=== PATIENT | female | born 2000 | race Caucasian/White ===

== ENCOUNTER 2024-12-23 08:21 | Emergency (ER) | payer OTHER ==
[2024-12-23 08:39] VITALS: BP 129/69; PULSE 86; TEMP 98.9
[2024-12-23 08:55] VITALS: O2SAT 97
--- NOTE | 2024-12-23 08:55 | ERPHSYRPT ---
- History of Present Illness Time Seen by Provider: 12/23/24 08:35 Source: patient Exam Limitations: no limitations Patient Subjective Stated Complaint: pt doesn't feel like she has felt the baby move much yesterday or today Triage Nursing Assessment: Pt brought to the ER by her boyfriend, harry wnl, denies any pain, pulses normal, FH tones 148, reports gender of baby as a boy, 2nd , doesn't appear to be in any distress Physician History: This is a 24-year-old white female patient who is 17 weeks and concerned that she did not feel the fetus moving. The patient has absolutely no other complaints other than decreased movement. She denies chest pain. She denies abdominal pain. She denies vaginal bleeding/discharge she has no cough. She has no nausea vomiting or diarrhea symptoms. Timing/Duration: today Activites at Onset: none Onset Location: other (No abdominal pain) Severity of Pain-Max: none Severity of Pain-Current: none Prior abdominal problems: none Sexual intercourse history: non-contributory Modifying Factors: Improves With: nothing Associated Symptoms: denies symptoms Allergies/Adverse Reactions: latex Allergy (Verified 12/23/24 08:39) Home Medications: Pnv No.95/Ferrous Fum/Folic AC [ Caplet] 1 each PO DAILY 12/23/24 [History] Hx Influenza Vaccination/Date Given: No Hx Pneumococcal Vaccination/Date Given: No Travel Risk - International Travel Have you traveled outside of the country in past 3 weeks: No - Emerging Infectious Disease Are you exhibiting symptoms associated with any current EIDs: No - Review of Systems Constitutional: No Symptoms Eyes: No Symptoms Ears, Nose, & Throat: No Symptoms Respiratory: No Symptoms Cardiac: No Symptoms Abdominal/Gastrointestinal: No Symptoms Genitourinary Symptoms: No Symptoms Musculoskeletal: No Symptoms Skin: No Symptoms Neurological: No Symptoms Psychological: No Symptoms Endocrine: No Symptoms Hematologic/Lymphatic: No Symptoms Immunological/Allergic: No Symptoms All Other Systems: Reviewed and Negative - Past Medical History Pertinent Past Medical History: Yes Psycho-Social History: Bipolar - Past Surgical History Past Surgical History: Yes Other Surgical History: wisdom teeth removal - Female History Hx Now: Yes Gestational Age: 17 weeks - Social History Smoking Status: Never smoker Exposure to second hand smoke: Yes Drug Use: none - Social Determinants of Health Will the patient participate in the screening: Yes Do you worry about a steady place to live?: No Do you have any problems with any of the following?: No known problems In the past 12 months,have you had to go without utilities?: No Transportation Issues: No Has anyone in your support network made you feel unsafe?: No Have you or anyone in your house had to go without enough: No - Nursing Vital Signs Nursing Vital Signs: Initial Vital Signs Temperature 98.9 F 12/23/24 08:27 Pulse Rate 86 12/23/24 08:27 Blood Pressure 129/69 12/23/24 08:27 O2 Sat by Pulse Oximetry 97 12/23/24 08:27 Pain Scale Pain Intensity 0 - Physical Exam General Appearance: no apparent distress, alert, anxiety Eye Exam: PERRL/EOMI, eyes nml inspection Ears, Nose, Throat Exam: normal ENT inspection, moist mucous membranes Neck Exam: normal inspection, non-tender, supple, full range of motion Respiratory Exam: normal breath sounds, lungs clear, airway intact, No chest tenderness, No respiratory distress Cardiovascular Exam: regular rate/rhythm, normal heart sounds, normal peripheral pulses Gastrointestinal/Abdomen Exam: soft, normal bowel sounds, No tenderness Pelvic Exam: not done Rectal Exam: not done Back Exam: normal inspection, normal range of motion, No CVA tenderness, No vertebral tenderness Extremity Exam: normal inspection, normal range of motion, pelvis stable Neurologic Exam: alert, oriented x 3, cooperative, web operations lead II-XII nml as tested, normal mood/affect, nml cerebellar function, nml station & gait, sensation nml Skin Exam: normal color, warm, dry Lymphatic Exam: No adenopathy SpO2 Interpretation: normal SpO2: 97 O2 Delivery: Room Air - Course Nursing assessment & vital signs reviewed: Yes - Progress Progress: unchanged Air Movement: good Progress Note: 12/23/24 08:52 Medical decision making and the assignment of low complexity to this patient's medical issue today is based on review of the patient's past medical history, review the patient's medication list, review the patient drug allergy list, hist ory present illness and physical findings on examination. No radiographic or laboratory studies are necessary in the work of this patient. heart tones were measured at 148 bpm. We did call OB floor to get some direction as to any other testing that needs to be performed. On their thoughts are that there are no other testing necessary. I then spoke with Dr. Hill who is covering for OB today. I reviewed the patient history, presenting complaint and concern. The patient has no complaints whatsoever other than decreased movement. He stated that there is no specific lab or radiographic study necessary in this patient. Patient is to call her OB physician tomorrow, 12/24/2024, to make arrangements for follow-up appointment for further evaluation management. Counseled pt/family regarding: diagnosis, need for follow-up - Departure Departure Disposition: Home Clinical Impression: Condition: Stable Critical Care Time: No Additional Instructions: Continue your medications as prescribed. Call your OB provider tomorrow, 12/24/2024, and advised them of your concern and make arrangement for follow-up appointment in the next 2 to 3 days.
== END 2024-12-23 08:59 | disposition home or self-care (01) ==
LOC: ED 08:21
DX: Z34.82 Encounter for supervision of other normal pregnancy, second trimester (principal)
CPT/HCPCS: 99281